=== PATIENT | female | born 1965 | race African-American/Black ===

== ENCOUNTER 2016-10-02 08:16 | Inpatient (IN) ==
[2016-10-02] MEDS ORDERED: ZOFRAN IV ONE (09:22)
[2016-10-02] MEDS ORDERED: MORPHINE IV ONE (09:22)
[2016-10-02 09:23] LABS: MANUAL DIFF NEEDED? NO
[2016-10-02 09:39] LABS: URINE CULTURE NEEDED? NO; URINE MICRO REVIEW NEEDED? NO; URINE SOURCE CLEAN CATCH
[2016-10-02 09:39] LABS: AGAP 17; ALBUMIN 4.3 g/dL (3.5-5.0); ALKALINE PHOSPHATASE 162 U/L (32-104); AMYLASE 86 U/L (20-200); BUN 8 mg/dL (8-22); CALCIUM 9.6 mg/dL (8.8-10.2); CHLORIDE 91 mmol/L (98-107); COSMO 272; GOT 58 U/L (10-30); GPT 19 U/L (10-36); LIPASE 72 U/L (13-60); POTASSIUM 3.5 mmol/L (3.5-5.1); SODIUM 137 mmol/L (136-145); TCO2 29 mmol/L (25-35); TOTAL BILIRUBIN 1.35 mg/dL (0.20-1.00); TOTAL PROTEIN 8.1 g/dL (6.3-8.3)
[2016-10-02 09:40] LABS: BASO% 0.4 % (0.0-0.8); EOS# 0.07 X1000 (0.0-0.7); EOS% 0.9 % (0.0-10.0); HEMATOCRIT 37.2 % (37.0-47.0); HEMOGLOBIN 13.1 g/dL (12.0-16.0); LYMPH# 1.58 X1000 (1.2-3.4); LYMPH% 20.9 % (20.5-51.1); MCHC 35.2 g/dL (33-37); MCV 93.7 FL (81-99); MONO# 0.68 X1000 (0.11-0.59); MPV 10.5 FL (7.4-10.4); NEUT% 68.8 % (42.2-75.2); PLT 230 X1000 (130-400); RBC 3.97 XMIL (4.2-5.4)
[2016-10-02 09:49] LABS: BILIRUBIN URINE SMALL (NEGATIVE); BLOOD URINE MODERATE (NEGATIVE); COLOR ORANGE; GLUCOSE URINE NEGATIVE (NEGATIVE); LEUKOCYTES URINE NEGATIVE (NEGATIVE); NITRITE URINE NEGATIVE (NEGATIVE); PH URINE 7.5; PROTEIN URINE 100 mg/dL (NEGATIVE); SP GRAVITY URINE 1.026; TURBIDITY URINE CLEAR (CLEAR); UROBILINOGEN URINE 4 mg/dL (NORMAL)
[2016-10-02 09:50] LABS: UR EPITHELIAL CELLS <10 /HPF (<10); URINE BACTERIA 1+ /HPF; URINE RBC TNTC /HPF (<10); URINE WBC <10 /HPF (<10)
[2016-10-02] MEDS ORDERED: PRIMAXIN 500 MG in NS 100 ML IV ONE (10:47)
--- NOTE | 2016-10-02 11:12 | Diag Imaging Result Document ---
PROCEDURE NAME: CT ABD/PELVIS W/ IV CONT ONLY - 10/02/2016 CT ABDOMEN AND PELVIS WITH INTRAVENOUS CONTRAST: TECHNIQUE: Dose-reduction protocol. COMPARISON: Compared to 04/24/2015. FINDINGS: There continues to be fatty infiltration of the liver although it is less fatty than on the prior exam. The spleen is not enlarged. Normal adrenal glands and kidneys. No hydronephrosis. Normal gallbladder. Normal aorta. Interval development of multiple hypodense areas within the head of the pancreas and proximal body. The largest measures 18 mm. Minimal inflammation about the pancreatic head. No pancreatic calcifications. No bowel obstruction. No abscess. The urinary bladder is only mildly distended. There is a small amount of free fluid within the pelvis. I believe there is a fibroid within the fundus of the uterus measuring 2.7 cm. IMPRESSION: 1. Interval development of multiple pancreatic pseudocysts versus multilobulated mass. Questionable mild pancreatitis with minimal inflammation about the pancreatic head. 2. Fatty infiltration of the liver. 3. Uterine fibroid. 4. Small amount of free fluid within the pelvis. A preliminary report was given at 10:31 a.m.
--- NOTE | 2016-10-02 11:32 | PROVIDER DOCUMENTATION ---
This chart was entered by Sushant Wagner Scribe, acting as scribe for Leo Cervantes MD. HPI-Abdominal Pain/GI Problem - General Chief Complaint: Abdominal Pain Stated Complaint: ABD PAIN,VOMITING Time Seen by Provider: 10/02/16 08:53 Source: patient Allergies/Adverse Reactions: Patient Allergies Allergy/AdvReac Type Severity Reaction Status Date / Time No Known Allergies Allergy Verified 10/02/16 08:33 Home Medications: Home Medication List Medication Instructions Recorded Confirmed Last Taken Type Metoprolol [Lopressor] 25 mg PO BID #60 tablet 05/01/15 10/02/16 10/02/16 Rx - History of Present Illness-ABD Nature of Presenting Problems: patient is a 51 yo/ F that presents to the ER with 24 hours of generalized abdominal pain and n/v. Patient reports about 7 to 8 episodes of vomiting. Patient denies diarrhea, rectal bleeding, or fever. She has had no recent sick contacts or taken antibiotics. She has had similar problems in the past when she had "pancreas problems". Patient reported drinking 3 shots yesterday. No history of seizures or tremors when doesn't drink Abdominal Pain Onset Location: reports: generalized abdomen Pain Radiation: reports: no radiation Quality of Pain: reports: aching, cramping Severity in ED: reports: moderate Onset/Duration: reports: abrupt, 24 hours ago Timing: reports: still present, constant Activities at Onset: reports: none Modifying Factors: improves with: nothing Associated Symptoms: reports: nausea, vomiting. denies: chest pain, cough, diarrhea, dizziness, EENT symptoms, fever/chills, genitourinary problems, muscle aches, sinus congestion/drainage, shortness of breath, weakness # of Vomiting Episodes: 7 Emesis Description: reports: clear. denies: red blood, coffee grounds Similar Symptoms Previously?: Yes Recently seen or treated by another doctor?: No Review of Systems - Adult - REVIEW OF SYSTEMS - ADULT Constitutional: denies: chills, fever Eyes: reports: no symptoms reported Ears, Nose, Mouth & Throat: reports: no symptoms reported Cardiovascular: denies: chest pain, palpitations, syncope Respiratory: denies: cough, shortness of breath, wheezing Gastrointestinal: reports: abdominal pain, nausea, vomiting. denies: hematemesis, diarrhea, rectal bleeding Genitourinary: denies: dysuria, frequency, hematuria, urgency Musculoskeletal: denies: back pain, joint pain, neck pain Integumentary: reports: no symptoms reported Neurological: reports: no symptoms reported Psychiatric: reports: no symptoms reported Endocrine: reports: no symptoms reported Hematologic/Lymphatic: reports: no symptoms reported Allergic/Immunologic: reports: no symptoms reported All Other Systems: Reviewed and Negative Past History - Adult - PAST MEDICAL HISTORY-ADULT Review of Records: reports: Old Records Reviewed, Nursing Assessment Review, Medications Reviewed Cardiovascular: reports: HTN Gastrointestinal: reports: pancreatitis - PRIOR SURGERIES/PROCEDURES Surgical/Procedure History: reports: none - IMMUNIZATION STATUS Childhood Immunizations: See Nurse Assessment Flu Vaccine: See Nurse Assessment - FAMILY HISTORY Family History: reviewed, not pertinent - SOCIAL HISTORY Smoking: cigarettes, less than 1 pack/day Substance Use: marijuana Alcohol Use Frequency: occasionally Living Situation: family Physical Exam-General - PHYSICAL EXAM-ADULT Initial Vital Signs Reviewed: Yes - CONSTITUTIONAL General Appearance: alert, no apparent distress - EYES Eyes: PERRL/EOMI, pink conjunctivae - HEAD, EARS, NOSE, MOUTH & THROAT HENMT: normocephalic/atraumatic, moist mucous membranes, normal ENT inspection - NECK Neck: full range of motion, normal inspection. negative: lymphadenopathy - RESPIRATORY Respiratory: lungs clear, normal breath sounds, no respiratory distress, no accessory muscle use - CARDIOVASCULAR Cardiovascular: regular rate, rhythm, no gallop, no murmur - GASTROINTESTINAL (ABDOMEN) Abdominal Exam: normal bowel sounds, soft, no organomegaly, no pulsatile mass, tenderness (epigastric and LUQ) - MUSCULOSKELETAL Back Exam: no CVA tenderness, no vertebral tenderness Extremity: normal range of motion, normal inspection - SKIN Integumentary: normal color, warm/dry - NEUROLOGIC Neurologic: grossly normal, no motor/sensory deficits - PSYCHIATRIC Psych/Mental Status: normal mood/affect, normal thought content, normal thought process, oriented x 3 Progress - PLAN OF CARE/RESULTS Progress/Plan/Lab Results: Vital Signs - 8 hr 10/02/16 08:22 Temperature 98.4 F Pulse Rate 98 H Respiratory Rate 14 Blood Pressure 184/96 O2 Sat by Pulse Oximetry 99 Laboratory Results - last 24 hr 10/02/16 10/02/16 10/02/16 08:47 08:47 09:15 WBC 7.57 RBC 3.97 L Hgb 13.1 Hct 37.2 MCV 93.7 MCH 33.0 H MCHC 35.2 RDW Std Deviation 13.6 Plt Count 230 MPV 10.5 H Immature Gran % (Auto) 0.0 Neut % (Auto) 68.8 Lymph % (Auto) 20.9 [place] % (Auto) 9.0 Eos % (Auto) 0.9 Baso % (Auto) 0.4 Immature Gran # (Auto) 0.00 Neut # (Auto) 5.21 Lymph # (Auto) 1.58 [place] # (Auto) 0.68 H Eos # (Auto) 0.07 Baso # (Auto) 0.03 Sodium 137 Potassium 3.5 Chloride 91 L Carbon Dioxide 29 Anion Gap 17 BUN 8 Creatinine 0.7 Estimated GFR/1.73 m2 > 60 BUN/Creatinine Ratio 11 Glucose 95 Calculated Osmolality 272 Calcium 9.6 Total Bilirubin 1.35 H AST 58 H ALT 19 Alkaline Phosphatase 162 H Total Protein 8.1 Albumin 4.3 Globulin 3.8 Albumin/Globulin Ratio 1.1 Amylase 86 Lipase 72 H Urine Source CLEAN CATCH Urine Color ORANGE Urine Turbidity CLEAR Urine pH 7.5 Ur Specific [place] 1.026 Urine Protein 100 A Ur Glucose (Stick) NEGATIVE Ur Ketones (Stick) 100 A Urine Blood MODERATE A Urine Nitrite NEGATIVE Urine Bilirubin SMALL A Urobilinogen Dipstick 4 A Urine Leukocytes NEGATIVE Urine WBC (Auto) <10 Urine RBC (Auto) TNTC A U Epithel Cells (Auto) <10 Urine Bacteria (Auto) 1+ Orders Category Date Time Status Saline Loc DIRECTED Care 10/02/16 09:07 Active NPO Diet 10/02/16 09:[address] ABD/PELVIS W/ IV CONT ONLY [CT] Stat Exams 10/02/16 09:17 Taken AMYLASE [CHEM] Stat Lab 10/02/16 08:47 Completed CBC WITH ELECTRONIC DIFF [HEME] Stat Lab 10/02/16 08:47 Completed COMPREHENSIVE METABOLIC PANEL [CHEM] Stat Lab 10/02/16 08:47 Completed LIPASE [CHEM] Stat Lab 10/02/16 08:47 Completed URINALYSIS W/POSS RFLX CULT [URINALYSIS] Stat Lab 10/02/16 09:15 Completed Morphine Med 10/02/16 09:22 Discontinued 4 mg IV NOW ONE Ondansetron [Zofran] Med 10/02/16 09:22 Discontinued 4 mg IV NOW ONE 1050-hospitalist paged for admission Result Diagrams: 10/02/16 08:47 10/02/16 08:47 - REASSESSMENT Reassessment #1 Status: improving (Patient revisted multiple times while in ED. Made aware of laboratory and CT results and treatment plan. patient in no acute distress.) - CT/MRI 1 CT Study: Abdomen, Pelvis Impression: Abnormal CT Results: pancreatic pseudocyst vs mass, inflammed head of pancreas - CONSULTS/PCP/HOSPITALIST Notification #1 *Consult/PCP/Hospitalist*: Time Discussed: 11:04 Reason/Comments: pancreatitis, pseudo cyst vs mass Consult Disposition: Admit Departure - Departure Time of Disposition Decision: 10:40 DIAGNOSIS: Pancreatitis, Pseudocyst of pancreas, Abdominal pain, ETOH abuse Disposition: ADMITTED INPATIENT 09 Certified Medical Emergency: Emergent Condition: Stable Referrals and Follow-Ups: None,PCP [Primary Care Provider] - This chart was documented by the indicated scribe, (Sushant Wagner, Scribe) and accurately reflects the services I performed and decisions made by me, Leo Cervantes MD, as attested by the provider's signature.
[2016-10-02] MEDS ORDERED: LR 1,000 ML IV ONE ×2 (11:50)
[2016-10-02] MEDS ORDERED: ZOFRAN IV PRN (12:39)
[2016-10-02] MEDS ORDERED: ATIVAN IV PRN (12:39)
[2016-10-02] MEDS ORDERED: TYLENOL PO PRN (12:39)
--- NOTE | 2016-10-02 14:07 | HISTORY AND PHYSICAL ---
PRIMARY CARE PHYSICIAN: None. The patient uses walk-in clinics. CHIEF COMPLAINT: Abdominal pain with nausea and vomiting. HISTORY OF PRESENT ILLNESS: Ms. Fuller is a 51-year-old female who carries a past medical history of hypertension, as well as pancreatitis in the past, alcohol use. The patient states she has good days and bad days, and on the bad days, her drink of choice is vodka. She was not able to elaborate how many days a week or how much she drank. She stated that it depended on how bad of a day she was having. The patient presented to the emergency room with 1 day of nausea, vomiting, and generalized abdominal pain. She did get relief from her abdominal pain after she was given some IV morphine. It was not tender to the touch. She was not having any generalized aches. She did report nausea and vomiting since yesterday. She stated that she was even unable to hold down water, and she stated that she has had this problem in the past with her pancreas and knew what it was, so she came on to the ED. She was started on IV fluids, as well as pain medication and antiemetics. She denies any chest pain, denies any shortness of breath, denies any headache. Denies any dizziness, dysuria, any diarrhea or changes in her stool or any blood in her stool. Her pain was mainly focused in the epigastric area prior to being given morphine. A CT of her abdomen and pelvis revealed interval development of multiple pancreatic pseudocysts versus multilobulated masses, questionable mild pancreatitis with minimal inflammation about the pancreatic head, fatty infiltration of the liver, uterine fibroid, a small amount of free fluid within the pelvis. White count was normal. Total bilirubin was 1.35, AST was 58, ALT 19, alkaline phosphatase was 162. Amylase was 86, and lipase was 72. The patient was admitted for further evaluation and treatment. PAST MEDICAL HISTORY: 1. Hypertension. 2. Pancreatitis in the past. 3. Alcohol abuse. PAST SURGICAL HISTORY: None. SOCIAL HISTORY: The patient did report that vodka is her choice for alcohol. She could not give me any indications of how much vodka she drinks. She just states she has good days and bad days. Yesterday she did have a mixed drink with vodka. Denies any illicit drug use. FAMILY HISTORY: Reviewed and noncontributory. ALLERGIES: No known drug allergies. HOME MEDICATIONS: Metoprolol 25 mg p.o. b.i.d. REVIEW OF SYSTEMS: A 10-point review of systems was completed and negative except for those mentioned in the HPI. The patient did state that her last drink was yesterday. She had 1 mixed drink with vodka. PHYSICAL EXAMINATION: VITAL SIGNS: Temperature is 98.4 degrees, heart rate 98, respirations 14, blood pressure 184/96, and O2 is 99% on room air. GENERAL: Ms. Fuller is a 51-year-old female, who is lying in bed, in no acute distress. HEENT: Atraumatic and normocephalic. PERRLA. NECK: Supple. Trachea midline. CARDIOVASCULAR: No murmurs, gallops, or rubs noted. RESPIRATORY: Lungs sound clear. Equal to excursion, nonlabored breathing. GASTROINTESTINAL: Soft and nontender at this time secondary to having pain medication. Positive bowel sounds in all 4 quadrants. EXTREMITIES: No evidence of clubbing, cyanosis, or edema. Bilateral pedal pulses palpable. NEUROLOGIC: The patient is alert and oriented x4. No neurological deficits noted. LABORATORY AND DIAGNOSTIC DATA: White count 7, hemoglobin 13, hematocrit 37, platelet count of 230,000. Chemistries: Sodium 137, potassium 3.5, BUN 8, creatinine 0.7, blood glucose is 95. Total bilirubin 1.35, AST 58, ALT 19, alkaline phosphatase 162. Amylase 86, lipase 72. Urine is negative for nitrites, negative for leukocytes, less than 10 WBCs, too numerous to count RBCs, and 1+ urine bacteria. We will send off for a culture. ASSESSMENT AND PLAN: 1. Acute pancreatitis. The patient will be admitted to medical telemetry. We will continue with her lactated Ringer's, her bolus as well as an hourly rate; as well as pain management and antiemetics. We will trend her amylase and lipase, with a gastrointestinal consultation. 2. Hypertension. We will do intravenous metoprolol with parameters. 3. Alcohol abuse. We will give as needed Ativan and watch closely for any signs and symptoms of alcohol withdrawal to prevent any delirium tremens. 4. Further recommendations pending physician evaluation, laboratory and diagnostic data, and we will go ahead and check a urine culture. Dictated by FLORENCE Cat for Rafael Greene MD cc: Rafael Greene MD
[2016-10-02] MEDS: LOPRESSOR IV SCH (18:33)
[2016-10-02] MEDS: POTASSIUM CHLORIDE 20 MEQ, MAGNESIUM SULFATE 2 GM, THIAMINE 100 MG, FOLIC ACID 1 MG, M.... IV SCH ×6 (18:43)
[2016-10-02] MEDS: PROTONIX IV SCH (18:45)
[2016-10-02] MEDS: MORPHINE IV PRN (20:47)
[2016-10-03] MEDS: LOPRESSOR IV SCH ×2 (00:20→12:30)
[2016-10-03] MEDS: MORPHINE IV PRN ×2 (06:13→21:00)
[2016-10-03 07:08] LABS: MANUAL DIFF NEEDED? NO
[2016-10-03 07:24] LABS: BASO% 0.4 % (0.0-0.8); EOS# 0.18 X1000 (0.0-0.7); EOS% 3.3 % (0.0-10.0); HEMATOCRIT 38.2 % (37.0-47.0); HEMOGLOBIN 13.2 g/dL (12.0-16.0); LYMPH# 1.57 X1000 (1.2-3.4); LYMPH% 28.5 % (20.5-51.1); MCH 32.4 PG (27-31); MCHC 34.6 g/dL (33-37); MCV 93.6 FL (81-99); MONO# 0.49 X1000 (0.11-0.59); MONO% 8.9 % (1.7-9.3); MPV 10.3 FL (7.4-10.4); NEUT% 58.9 % (42.2-75.2); PLT 207 X1000 (130-400); RBC 4.08 XMIL (4.2-5.4)
[2016-10-03 07:35] LABS: AGAP 14; ALBUMIN 3.9 g/dL (3.5-5.0); ALKALINE PHOSPHATASE 146 U/L (32-104); AMYLASE 90 U/L (20-200); BUN 5 mg/dL (8-22); CALCIUM 9.7 mg/dL (8.8-10.2); CHLORIDE 91 mmol/L (98-107); COSMO 266; GOT 40 U/L (10-30); GPT 15 U/L (10-36); LIPASE 126 U/L (13-60); MAGNESIUM 1.5 mg/dL (1.5-2.7); POTASSIUM 3.7 mmol/L (3.5-5.1); SODIUM 135 mmol/L (136-145); TCO2 30 mmol/L (25-35); TOTAL BILIRUBIN 1.12 mg/dL (0.20-1.00); TOTAL PROTEIN 7.8 g/dL (6.3-8.3)
--- NOTE | 2016-10-03 08:55 | Diag Imaging Result Document ---
PROCEDURE NAME: US GB < RUQ (LIMITED) - 10/03/2016 RIGHT UPPER QUADRANT ULTRASOUND, 10/03/2016: COMPARISON: CT abdomen and pelvis 10/02/2016. FINDINGS: The liver, gallbladder and right kidney are normal. There is ill-defined peripancreatic hyper echogenicity at the pancreatic head compatible with small complicated fluid collections. No evidence of mass. The common bile duct measures 4 mm. Aorta, IVC, and main portal vein are patent. IMPRESSION: Small complicated fluid collections at the pancreatic head. The gallbladder is clear.
--- NOTE | 2016-10-03 14:12 | PROGRESS NOTE ---
DATE: 10/03/2016 SUBJECTIVE: Patient has no focal complaints. OBJECTIVE: Vital signs: Blood pressure 158/85, heart rate of 80, respiratory 18, temperature 98.1 degrees, 98% on room air. Cardiovascular: Regular rate and rhythm. Pulmonary: Bilateral breath sounds. Clear to auscultation. GI: Soft, nontender, nondistended. Bowel sounds are positive. LABORATORY DATA: White count is normal. CMP is normal except total bilirubin up a little bit 1.12, AST of 40, lipase is up to 126. Right upper quadrant showed complicated pseudocyst but no gallbladder disease. PROBLEM LIST: 1. Acute pancreatitis, recurrent. I am suspicious she has got chronic pancreatitis with a pseudocyst or at least fairly recent recurrent pancreatitis. Pseudocysts are too small at this point for drainage. We will just monitor clinically. I am going to advance her diet. She is clinically improved despite her lipase elevation. She may need the initiation of Creon and we will continue to follow. 2. Alcohol abuse. We will continue to monitor. She has not exhibited any signs of withdrawal. Continue p.r.n. medications and follow clinically. DISPOSITION: Pending resolution of her issues. We will continue to monitor. cc: Rafael Greene MD
[2016-10-03] MEDS: POTASSIUM CHLORIDE 20 MEQ, MAGNESIUM SULFATE 2 GM, THIAMINE 100 MG, FOLIC ACID 1 MG, M.... IV SCH ×6 (17:48)
[2016-10-03] MEDS: SODIUM CHLORIDE 0.9% INJ SCH (17:48)
[2016-10-03] MEDS: PROTONIX IV SCH (17:48)
[2016-10-03] MEDS: CENTRUM SILVER PO SCH (22:04)
[2016-10-04 06:48] LABS: HEMATOCRIT 39.6 % (37.0-47.0); HEMOGLOBIN 13.7 g/dL (12.0-16.0); MCH 32.8 PG (27-31); MCHC 34.6 g/dL (33-37); MCV 94.7 FL (81-99); MPV 10.5 FL (7.4-10.4); RBC 4.18 XMIL (4.2-5.4)
[2016-10-04 07:00] LABS: AGAP 14; ALBUMIN 3.8 g/dL (3.5-5.0); ALKALINE PHOSPHATASE 133 U/L (32-104); BUN 5 mg/dL (8-22); CALCIUM 9.4 mg/dL (8.8-10.2); CHLORIDE 93 mmol/L (98-107); COSMO 266; GOT 28 U/L (10-30); GPT 12 U/L (10-36); POTASSIUM 3.5 mmol/L (3.5-5.1); SODIUM 134 mmol/L (136-145); TCO2 27 mmol/L (25-35); TOTAL BILIRUBIN 0.79 mg/dL (0.20-1.00); TOTAL PROTEIN 7.5 g/dL (6.3-8.3)
[2016-10-04 07:08] LABS: LIPASE 411 U/L (13-60)
[2016-10-04] MEDS: CENTRUM SILVER PO SCH ×2 (08:07→20:54)
--- NOTE | 2016-10-04 12:16 | PROGRESS NOTE ---
DATE: 10/04/2016 SUBJECTIVE: The patient is just complaining about wanting to the eat. However she still has abdominal pain and she is still requiring pain medication. OBJECTIVE: Blood pressure 148/94, heart rate 90, respiratory rate 22, temperature 98.4 degrees.Cardiovascular: Regular rate and rhythm. Pulmonary: Bilateral breath sounds. Clear to auscultation. GI: Soft. She is tender to palpation and her lipase has come up somewhat. LABORATORY DATA: Lipase is 411 today. CBC normal. PROBLEM LIST: 1. Acute recurrent pancreatitis. She is very adamant about eating but she is still very tender. I will go ahead and start some full liquids and I am going to add some Creon and then we will follow clinically. I think she is wanting to eat but I am not sure she is really that much clinically improved based on her numbers not so much and I think she probably has chronic pancreatitis at this point, with significant pseudocyst which hopefully will not turn into anything that needs to be drained but we will monitor. GI also following. 2. Alcohol abuse. I have counseled on alcohol cessation. Clinically she seems okay so we are just going to follow. There has not been any evidence of withdrawal at this point. DISPOSITION: Pending her clinical course. cc: Rafael Greene MD
[2016-10-04] MEDS: SODIUM CHLORIDE 0.9% INJ SCH (16:10)
[2016-10-04] MEDS: NS 1,000 ML IV SCH (16:10)
[2016-10-04] MEDS: PROTONIX IV SCH (16:10)
[2016-10-04] MEDS: CREON PO SCH ×2 (16:10→20:54)
[2016-10-04] MEDS: MORPHINE IV PRN (20:54)
[2016-10-04] MEDS ORDERED: DULCOLAX PR SCH (21:00)
[2016-10-05] MEDS: MORPHINE IV PRN ×2 (02:24→09:38)
--- NOTE | 2016-10-05 04:00 | PROGRESS NOTE ---
DATE: 10/04/2016 SUBJECTIVE: The patient is resting in bed. She complains of abdominal pain. She denies any nausea or vomiting, or vomiting blood. She denies any blood in the stools. She had a bowel movement a few days ago. She does have history of some mild constipation in the past. She has history of chronic alcoholism, complicated with chronic alcoholic pancreatitis. She was admitted on 10/02/2016 with abdominal pain, and was noted to have elevated lipase and imaging showed evidence of a pancreatic pseudocyst. The patient is currently being treated with IV fluids, pain control, and IV antiemetics. She is feeling better and wants to go home. PHYSICAL EXAMINATION: Vital Signs: Temperature 98.5 degrees, pulse of 109, respiratory rate 18, blood pressure 144/84, saturating 100% on room air. Body weight of 104 pounds 3.2. BMI of 18.5 kg. General: Moderately built, moderately nourished, lying in bed in no acute distress. HEENT: Mild pallor. No icterus. Pupils equal, react to light. Neck: Supple. Chest: Clear. Heart: Regular rhythm. No murmurs. Tachycardic at times. Abdomen: discomfort in periumbilical region; no rebound or guarding. Bowel sounds are hypoactive. Extremities: No cyanosis , clubbing, or edema. Neurologic: She is alert, awake, oriented. LABORATORY: Hemoglobin and hematocrit are 13.7 and 39.6. White count is 6.7. Platelet count of 206,000. MCV of 94.7. Sodium 135, potassium 3.5, chloride 98, bicarbonate 20, anion gap of 14, BUN of 5, creatinine 0.5, glucose of 109, calcium 9.4. Total bilirubin is 0.79 , AST 28, ALT 12, alkaline phosphatase 133, total protein 7.5, albumin of 3.8, amylase of 90. Lipase on admission was 72, but has gone up to 411. Her CA19-9 is 33, which is normal. Urinalysis showing positive protein, positive blood, positive bilirubin, negative leukocytes, positive RBCs. IMAGING: CT of abdomen and pelvis on 10/02/2016 showed: 1. Interval development of multiple pancreatic pseudocysts versus multilobulated mass, questionable mild pancreatitis with minimal inflammation about the pancreatic head. 2. Fatty infiltration of liver. 3. Spleen is not enlarged. 4. No hydronephrosis and normal gallbladder. 5. The largest pancreatic head cyst is 18 mm. 6. Fibroid within the fundus of the uterus measuring 2.7 cm. 7. Small amount of free fluid in the pelvis. IMPRESSION AND PLAN: 1. Alcoholic pancreatitis, which I believe is likely chronic, now complicated with pancreatic pseudocysts and acute exacerbation. 2. Constipation. 3. Uterine fibroids. 4. Alcoholism. 5. Alcoholic fatty liver disease. RECOMMENDATIONS: 1. We will continue patient on aggressive IV fluids as per the primary care team. Will restart her on normal saline at 150 mL/h for another 24 hours. 2. We agree with continuing on Creon with meals. 3. Will keep her on PPI prophylaxis with Protonix. 4. Will start on bowel regimen with Dulcolax. 5. We will keep her on liquid diet for now and advance as tolerated based on her clinical symptoms. 6. The patient was counseled to quit alcohol completely. 7. Patient will be continued on multivitamin twice daily and patient needs to be watched closely for any kind of alcoholic withdrawal. The patient will need repeat CT scan in the next 6 months to evaluate for resolution of the pancreatic pseudocysts. The above plan was discussed with the patient and Dr. Greene. cc: MD Jacob Black MD [facility]PITALFrank
[2016-10-05] MEDS: NS 1,000 ML IV SCH (06:24)
[2016-10-05 07:04] LABS: HEMATOCRIT 33.7 % (37.0-47.0); HEMOGLOBIN 11.7 g/dL (12.0-16.0); MCH 32.6 PG (27-31); MCHC 34.7 g/dL (33-37); MCV 93.9 FL (81-99); MPV 10.3 FL (7.4-10.4); RBC 3.59 XMIL (4.2-5.4)
[2016-10-05 07:21] LABS: AGAP 12; ALBUMIN 3.2 g/dL (3.5-5.0); ALKALINE PHOSPHATASE 107 U/L (32-104); AMYLASE 89 U/L (20-200); BUN 4 mg/dL (8-22); CALCIUM 8.9 mg/dL (8.8-10.2); CHLORIDE 101 mmol/L (98-107); COSMO 271; GOT 26 U/L (10-30); GPT 11 U/L (10-36); LIPASE 234 U/L (13-60); POTASSIUM 3.6 mmol/L (3.5-5.1); SODIUM 137 mmol/L (136-145); TCO2 24 mmol/L (25-35); TOTAL PROTEIN 6.8 g/dL (6.3-8.3)
[2016-10-05] MEDS: CENTRUM SILVER PO SCH (09:37)
[2016-10-05] MEDS: CREON PO SCH ×2 (09:38→14:53)
[2016-10-05] MEDS: SODIUM CHLORIDE 0.9% INJ SCH (16:48)
[2016-10-05] MEDS: PROTONIX IV SCH (16:48)
[2016-10-05 18:15] VITALS: BP 153/88
--- NOTE | 2016-10-05 21:21 | DISCHARGE SUMMARY ---
ADMISSION DATE: 10/02/2016 DISCHARGE DATE: 10/05/2016 DISCHARGE DIAGNOSES: 1. Acute pancreatitis with recurrence. 2. Alcohol abuse. 3. Multiple pseudocysts. HOSPITAL COURSE: Briefly this is a 51-year-old female with recurrent pancreatitis presenting with abdominal pain, nausea, vomiting. Lipase was only mildly elevated but CT showed pancreatitis with multiple pancreatic pseudocysts. I think the largest was felt to be 1.8 cm. Patient was made NPO, placed on fluids. The following day she clinically improved. Her lipase though had jumped up a little bit. It actually reached a peak of about 411 but clinically she improved. We slowly advanced her diet on the . We advanced it to a low-fat, soft diet. She was tolerating it without difficulty. Pain was stable. I did consult GI who recommended obviously cessation of alcohol and the pseudocyst would need to be followed in 4-6 weeks just to make sure that they did not worsen. They recommended fluids, Creon with meals, and Prilosec. DISCHARGE CONDITION: Stable. DISCHARGE MEDICATIONS: 1. Creon 6000 units t.i.d. with meals. 2. Lopressor 25 b.i.d. 3. Prilosec 40 daily. 4. Lamar 5, 1 p.o. q.4 hours p.r.n. pain. Dispensed 15. 5. Zofran ODT. DISCHARGE INSTRUCTIONS: 1. She was advised to avoid alcohol completely for at least 6 weeks until re-evaluation. 2. Pursue low-fat soft diet. 3. We will attempt to get her some support for her medication as the Creon I anticipate will be fairly expensive. 4. This was a service admission. DISCHARGE TIME: 32 minutes. cc: Rafael Greene MD
== END 2016-10-05 18:50 | disposition home or self-care (01) ==
LOC: ED 08:16 → SUATTDRO 12:03 → 3N 12:03
PROVIDERS: ATTEND Internal Medicine

== ENCOUNTER 2018-11-07 07:38 | Inpatient (IN) ==
--- NOTE | 2018-11-07 09:15 | PROVIDER DOCUMENTATION ---
HPI-Abdominal Pain/GI Problem - General Chief Complaint: Abdominal Pain Stated Complaint: ABD PAIN,RECTAL BLEEDING,BACK PAIN Time Seen by Provider: 11/07/18 08:58 Source: patient Allergies/Adverse Reactions: Patient Allergies Allergy/AdvReac Type Severity Reaction Status Date / Time No Known Allergies Allergy Verified 01/01/18 07:14 Home Medications: Home Medication List Medication Instructions Recorded Confirmed Last Taken Type Multivitamins/Minerals [Centrum 1 each PO DAILY tablet 09/23/17 01/01/18 01/01/18 Rx Silver] Metoprolol [Lopressor] 50 mg PO BID #120 tab 12/11/17 01/01/18 01/01/18 Rx Amlodipine [Norvasc] 5 mg PO DAILY #30 tablet 01/01/18 Unknown Rx Clonidine HCl 0.1 mg PO TID PRN #60 tablet 01/01/18 Unknown Rx - History of Present Illness-ABD Nature of Presenting Problems: Patient is a 53yoF who presents w/ c/o upper abdominal pain radiating to back, nausea, and occasional vomiting for "a while." Reports she has a hx of pancreatitis and that she recently began drinking again 2 months ago after being laid off from her job and being depressed. Patient reports she has been dri nking multiple drinks daily, either beer or Vodka. Reports she has not had a pancreatitis flare-up in almost a year,but reports these symptoms feel similar. Also reports she had a BM this morning with red blood in it. Reports she has experienced this before with pancreatitis. Denies any fever/chills, CP, or SOB. Abdominal Pain Onset Location: reports: RUQ, LUQ Pain Radiation: reports: back Quality of Pain: reports: pressure, throbbing Severity in ED: reports: moderate Onset/Duration: reports: other ("for a while") Timing: reports: getting worse Activities at Onset: reports: none Modifying Factors: worse with: palpation Associated Symptoms: reports: nausea, vomiting. denies: constipation, diarrhea, fever/chills, genitourinary problems, shortness of breath Last BM: this morning Dark Stools Present?: reports: bright red blood Rectal Bleeding: reports: blood mixed with stool Rectal Pain: reports: known hemorrhoids Bruising or Bleeding Gums?: No Similar Symptoms Previously?: Yes (hx pancreatitis) Recently seen or treated by another doctor?: No Review of Systems - Adult - REVIEW OF SYSTEMS - ADULT Constitutional: denies: chills, fever Eyes: reports: no symptoms reported Ears, Nose, Mouth & Throat: reports: no symptoms reported Cardiovascular: denies: chest pain, palpitations Respiratory: denies: cough, shortness of breath Gastrointestinal: reports: see HPI, abdominal pain, nausea, rectal bleeding, vomiting. denies: diarrhea Genitourinary: reports: no symptoms reported Musculoskeletal: reports: see HPI, back pain Integumentary: reports: no symptoms reported Neurological: reports: no symptoms reported Psychiatric: reports: no symptoms reported Endocrine: reports: no symptoms reported All Other Systems: Reviewed and Negative Past History - Adult - PAST MEDICAL HISTORY-ADULT Review of Records: reports: Old Records Reviewed, Nursing Assessment Review, Medications Reviewed Major Childhood Illnesses: reports: denies history Cardiovascular: reports: HTN Respiratory: reports: denies history Gastrointestinal: reports: pancreatitis Obstetrical/Gynecological: reports: denies history Genitourinary: reports: denies history Musculoskeletal: reports: arthritis Neurological: reports: denies history Psychiatric: reports: denies history Endocrine/Immune: reports: denies history Other Conditions: reports: denies history - PRIOR SURGERIES/PROCEDURES Surgical/Procedure History: reports: none - IMMUNIZATION STATUS Childhood Immunizations: See Nurse Assessment Flu Vaccine: See Nurse Assessment - FAMILY HISTORY Family History: reviewed, not pertinent - SOCIAL HISTORY Smoking: cigarettes Provider spent 3-5 mins advising pt. on dangers of tobacco.: Discussed manners to quit use, and f/u contacts for add'l counseling. Alcohol Use Frequency: every day Number of drinks per typical drinking period:: 3-4 drinks ("depends on the day") Physical Exam-General - PHYSICAL EXAM-ADULT Initial Vital Signs Reviewed: Yes - CONSTITUTIONAL General Appearance: alert, mild distress - EYES Eyes: PERRL/EOMI - HEAD, EARS, NOSE, MOUTH & THROAT HENMT: normocephalic/atraumatic, moist mucous membranes - NECK Neck: full range of motion, supple, normal inspection - RESPIRATORY Respiratory: chest non-tender, lungs clear, normal breath sounds, no pleuratic chest pain, no respiratory distress, no accessory muscle use - CARDIOVASCULAR Cardiovascular: no gallop, no murmur, tachycardia (109) - GASTROINTESTINAL (ABDOMEN) Abdominal Exam: normal bowel sounds, soft, tenderness (TTP RUQ & LUQ). negative: distended, guarding, rigid, rebound - GENITOURINARY Female Genitalia/Pelvic Exam: deferred Rectal Exam: normal rectal tone, hemorrhoids (external). negative: tenderness Hemoccult Exam: heme positive stool - MUSCULOSKELETAL Back Exam: normal inspection Extremity: normal range of motion, non-tender, normal gait, normal inspection - SKIN Integumentary: normal color, warm/dry - NEUROLOGIC Neurologic: grossly normal - PSYCHIATRIC Psych/Mental Status: normal mood/affect, normal thought content, normal thought process, oriented x 3 Progress - PLAN OF CARE/RESULTS Progress/Plan/Lab Results: Vital Signs - 8 hr 11/07/18 07:39 Temperature 97.8 F Pulse Rate 109 H Respiratory Rate 18 Blood Pressure 162/108 O2 Sat by Pulse Oximetry 99 Orders Category Date Time Status Saline Loc NOW Care 11/07/18 08:58 Active AMYLASE [CHEM] Stat Lab 11/07/18 08:58 Uncollected CBC WITH ELECTRONIC DIFF [HEME] Stat Lab 11/07/18 08:58 Uncollected COMPREHENSIVE METABOLIC PANEL [CHEM] Stat Lab 11/07/18 08:58 Uncollected LIPASE [CHEM] Stat Lab 11/07/18 08:58 Uncollected OCCULT BLOOD SCREENING [STOOL] Stat Lab 11/07/18 08:58 Uncollected URINALYSIS W/POSS RFLX CULT [URINALYSIS] Stat Lab 11/07/18 08:58 Uncollected Result Diagrams: 11/07/18 09:15 11/07/18 09:15 - CT/MRI 1 CT Study: Abdomen, Pelvis Impression: See EMR Report ([facility] [address], [address], [place] [address] Department of Imaging Patient: BRENDA PORTILLO FAYEADM Date: 11/07/18MR#: [id number] : 1965ADM [id number] Age/Sex: 53/FRoom/Bed: Loc: ED Ordering Physician: Cierra Mcghee Family Physician: None,PCP Reason for Procedure: abd pain hx of pancreatitis __ _ Signed EXAM: CT ABD/PELVIS W/IV CONT ONLY HISTORY: abd pain hx of pancreatitis TECHNIQUE: CT abdomen and pelvis with intravenous contrast COMPARISON: 09/17/2017 FINDINGS: No calcified gallstones or adjacent inflammation. Mild fatty infiltration of the liver. Normal spleen. There are multiple scattered pancreatic calcifications. Mildly prominent pancreatic duct. Tiny cyst in the pancreatic head. Normal adrenal glands and kidneys. Normal aorta. No bowel obstruction. No dilated small bowel loops on the current exam. No abscess. There is a small amount of free fluid in the lower abdomen and pel vis. Normal uterus. The urinary bladder is mildly distended and appears normal. IMPRESSION: 1.Chronic pancreatitis 2.Fatty infiltration of the liver This exam was performed using automated exposure control, adjustment of mA or kV according to patient size, and/or use of iterative reconstruction technique. Electronically signed by Rafael Weaver 11/07/2018 11:26 AM 11/07/18 1126 Interpreting Physician: Rafael Weaver MD Dictated Date/Time: 11/07/18 1119 cc: Cierra Mcghee; None,PCP) - CONSULTS/PCP/HOSPITALIST Notification #1 *Consult/PCP/Hospitalist*: Jazmin Phillips Time Discussed: 11:45 Reason/Comments: Pancreatitis; rectal bleeding; elevated lipase Consult Disposition: Admit Departure - Departure Date of Disposition Decision: 11/07/18 Time of Disposition Decision: 11:45 DIAGNOSIS: ETOH abuse, Elevated lipase Pancreatitis Qualifiers: Chronicity: chronic Pancreatitis type: alcohol induced Qualified Code(s): K86.0 - Alcohol-induced chronic pancreatitis Abdominal pain Qualifiers: Abdominal location: upper abdomen, unspecified Qualified Code(s): R10.10 - Upper abdominal pain, unspecified GI bleed Qualifiers: GI bleed type/associated pathology: unspecified gastrointestinal hemorrhage ty pe Qualified Code(s): K92.2 - Gastrointestinal hemorrhage, unspecified UTI (urinary tract infection) Qualifiers: Urinary tract infection type: site unspecified Hematuria presence: with hematuria Qualified Code(s): N39.0 - Urinary tract infection, site not specified Disposition: ADMITTED INPATIENT 09 Certified Medical Emergency: Emergent Condition: Stable Referrals and Follow-Ups: None,PCP [Primary Care Provider] - - Critical Care Note This patient required my direct & personal management of CC.: No Attestation - Physician/ BALJINDER Attestation Patient care was provided by Advanced Practice Provider:: Yes Advanced Practice Provider:: Cierra Mcghee Advanced Practice Provider documentation review:: The Mid-level provider documentation, treatment plan and medical decision making was reviewed by the physician who agrees with all treatment and medical decision making by the MLP. The physician spent face to face time with patient:: No Advanced Practice Provider documentation review:: Supervising physician onsite and consulted in the evaluation and care of this patient. The physician did not have a face to face encounter with the patient.
[2018-11-07 09:34] LABS: BASO# 0.01 X1000 (0.0-0.2); BASO% 0.2 % (0.0-0.8); EOS# 0.07 X1000 (0.0-0.7); EOS% 1.2 % (0.0-10.0); HEMATOCRIT 46.6 % (37.0-47.0); HEMOGLOBIN 16.1 g/dL (12.0-16.0); LYMPH% 21.9 % (20.5-51.1); MCH 31.8 PG (27-31); MCHC 34.5 g/dL (33-37); MCV 91.9 FL (81-99); MONO# 0.47 X1000 (0.11-0.59); MONO% 7.9 % (1.7-9.3); MPV 10.5 FL (7.4-10.4); NEUT# 4.08 X1000 (1.4-6.5); NEUT% 68.8 % (42.2-75.2); PLT 245 X1000 (130-400); RBC 5.07 XMIL (4.2-5.4); RDW 16.8 % (11.5-14.5); WBC 5.93 X1000 (4.8-10.8)
[2018-11-07 09:37] LABS: URINE SOURCE CLEAN CATCH
[2018-11-07 09:43] LABS: BILIRUBIN URINE SMALL (NEGATIVE); BLOOD URINE SMALL (NEGATIVE); COLOR YELLOW; GLUCOSE URINE NEGATIVE (NEGATIVE); KETONE URINE 40 mg/dL (NEGATIVE); LEUKOCYTES URINE LARGE (NEGATIVE); NITRITE URINE NEGATIVE (NEGATIVE); PROTEIN URINE 100 mg/dL (NEGATIVE); TURBIDITY URINE HAZY (CLEAR); UROBILINOGEN URINE 3 mg/dL (NORMAL)
[2018-11-07] MEDS ORDERED: TORADOL IV ONE (09:51)
[2018-11-07 10:03] LABS: AGAP 16; ALB/GLOB RATIO 1.3; ALBUMIN 5.3 g/dL (3.5-5.0); ALKALINE PHOSPHATASE 165 U/L (32-104); AMYLASE 151 U/L (20-200); BUN 10 mg/dL (8-22); CALCIUM 10.9 mg/dL (8.8-10.2); CHLORIDE 92 mmol/L (98-107); COSMO 277; CREATININE 0.7 mg/dL (0.5-0.9); ESTIMATED GFR > 60; GLUCOSE 108 mg/dL (70-104); GOT 35 U/L (10-30); GPT 14 U/L (10-36); LIPASE 406 U/L (13-60); POTASSIUM 3.9 mmol/L (3.5-5.1); SODIUM 139 mmol/L (136-145); TCO2 31 mmol/L (25-35); TOTAL PROTEIN 9.5 g/dL (6.3-8.3)
[2018-11-07] MEDS ORDERED: M.V.I.-12 10 ML, FOLIC ACID 1 MG, MAGNESIUM SULFATE 1 GM, THIAMINE 100 MG in NS 1,000 ML IV ONE (10:32)
[2018-11-07 10:53] LABS: INR 0.83; PROTIME 12.1 Seconds (11.0-16.0); PTT 29.6 Seconds (22.3-41.8)
[2018-11-07 11:16] LABS: URINE CASTS GRANULAR PRESENT; URINE WBC TNTC /HPF (<10)
--- NOTE | 2018-11-07 11:28 | Diag Imaging Result Doc PS360 ---
EXAM: CT ABD/PELVIS W/IV CONT ONLY HISTORY: abd pain hx of pancreatitis TECHNIQUE: CT abdomen and pelvis with intravenous contrast COMPARISON: 09/17/2017 FINDINGS: No calcified gallstones or adjacent inflammation. Mild fatty infiltration of the liver. Normal spleen. There are multiple scattered pancreatic calcifications. Mildly prominent pancreatic duct. Tiny cyst in the pancreatic head. Normal adrenal glands and kidneys. Normal aorta. No bowel obstruction. No dilated small bowel loops on the current exam. No abscess. There is a small amount of free fluid in the lower abdomen and pelvis. Normal uterus. The urinary bladder is mildly distended and appears normal. IMPRESSION: 1.Chronic pancreatitis 2.Fatty infiltration of the liver This exam was performed using automated exposure control, adjustment of mA or kV according to patient size, and/or use of iterative reconstruction technique. Electronically signed by Rafael Weaver 11/07/2018 11:26 AM
[2018-11-07] MEDS ORDERED: ROCEPHIN 1 GM in NS 50 ML IV ONE (11:34)
[2018-11-07] MEDS ORDERED: ZOFRAN IV PRN (12:54)
[2018-11-07] MEDS ORDERED: NS 1,000 ML IV ONE (12:55)
[2018-11-07] MEDS: LIBRIUM PO SCH ×2 (13:32→18:49)
[2018-11-07] MEDS: NS 1,000 ML IV SCH (13:35)
[2018-11-07 13:42] LABS: UR AMPHETAMINES QUAL NONE DETECTED (NONE DETECT); UR BARBITUATES QUAL NONE DETECTED (NONE DETECT); UR BENZODIAZEPIN QUAL NONE DETECTED (NONE DETECT); UR CANNABINOIDS QUAL PRESUMPTIVE POSITIVE (NONE DETECT); UR COCAINE QUAL NONE DETECTED (NONE DETECT); UR METHADONE QUAL NONE DETECTED (NONE DETECT); UR OPIATES QUAL NONE DETECTED (NONE DETECT); UR OXYCODONE QUAL NONE DETECTED (NONE DETECT); UR PCP QUAL NONE DETECTED (NONE DETECT)
[2018-11-07] MEDS ORDERED: LOVENOX SUBQ SCH (14:00)
[2018-11-07 14:11] LABS: UR EPITHELIAL CELLS <10 /HPF (<10); URINE BACTERIA NEGATIVE /HPF; URINE RBC <10 /HPF (<10)
[2018-11-07] MEDS ORDERED: LABETALOL IV PRN (14:17)
--- NOTE | 2018-11-07 14:46 | HISTORY AND PHYSICAL ---
PRIMARY CARE PHYSICIAN: None. CHIEF COMPLAINT: Abdominal pain. HISTORY OF PRESENT ILLNESS: Mrs. Fuller is a 53-year-old -[place] female with a history of chronic pancreatitis, hypertension, nicotine dependence, alcohol dependence, who presents to the ER with abdominal pain since Sunday. She has a history of alcoholic pancreatitis and was admitted around a year ago for acute exacerbation of her alcoholic pancreatitis. She had a long period of sobriety but around 2 months ago she was laid off from her job and began to drink again. She reports drinking 3-4 shots of liquor a day coupled with 2-3 beers. She also smokes marijuana and smokes cigarettes. On Sunday, she starting having diffuse abdominal pain with nausea and vomiting. The pain has been progressively worse, not associated with any fevers, chest pain, or shortness of breath, but she did report some melena but denies any hematemesis or hematochezia. When she got to the ER today, she had labs done, which showed mild elevation in her transaminases with a lipase of 406. Her CT pelvis and abdomen did show chronic pancreatitis and fatty infiltration of the liver but nothing acute. She was also noted to have positive guaiac stool test. She is hemodynamically stable and will be admitted for further treatment and evaluation. PAST MEDICAL HISTORY: 1. Chronic pancreatitis secondary to alcohol dependence. 2. Hypertension, question of medical compliance. 3. Marijuana dependence. 4. Nicotine dependence. 5. Alcohol dependence. PAST SURGICAL HISTORY: None. SOCIAL HISTORY: She smokes a half a pack a day, drinks 3-4 shots of liquor coupled with 2-3 beers a day, smokes marijuana on occasion. She is currently unemployed. FAMILY HISTORY: Significant for lung cancer, hypertension, diabetes mellitus. REVIEW OF SYSTEMS: Denies any fever, chills. No chest pain or shortness of breath. No hematemesis. She does report diffuse abdominal pain crampy in nature radiating to her back. She denies any dysuria. Denies diarrhea. Does report melena. Denies lower extremity edema, swelling, calf tenderness. ALLERGIES: No known drug allergies. HOME MEDICATIONS: She takes a blood pressure pill she cannot recall the name of. PHYSICAL EXAMINATION: VITAL SIGNS: Blood pressure is 192/105, heart rate is 85, respiratory rate 13, O2 saturation is 99% on room air, temperature is 97.8. GENERAL: This is a thin somewhat frail-appearing 53-year-old -[place] female lying in the hospital bed in no acute distress. NEUROLOGICAL: Awake, alert, and oriented. Follows commands. No focal deficits. HEENT: Head is atraumatic, normocephalic. Pupils are equal, round, and reactive to light. Oral mucosa is dry. NECK: Trachea is midline. No JVD. CHEST: Clear to auscultation. CARDIOVASCULAR: Tachycardic but regular. S1, S2 is noted. No appreciable murmurs. GASTROINTESTINAL: Diffusely tender mainly in the left upper quadrant. Abdomen is nondistended. Bowel sounds are hypoactive. EXTREMITIES: No edema, clubbing, or cyanosis. Pulses are 2+ bilaterally. DIAGNOSTIC DATA: Abdomen and pelvis CT shows fatty liver and chronic pancreatitis, nothing acute. WBC 5.93, hemoglobin 16.1, hematocrit 46.6, platelet count 245. INR 0.83. Sodium 139, potassium 3.9, chloride 92, CO2 31, anion gap 16, BUN 10, creatinine 0.7, glucose is 108, calcium 10.9, magnesium 1.4, bilirubin 0.6, AST 35, ALT 14, alkaline phosphatase 165. CRP 17.58. Total protein 9.5, albumin 5.3. Triglycerides 107, cholesterol 317, LDL 204, HDL is 111. Lipase is 406. UA does show a question of infection but she is asymptomatic. ASSESSMENT AND PLAN: 1. [id number] alcoholic pancreatitis: Will continue with bowel rest. Lipid panel has been checked and found to not be contributing to her pancreatitis. Abdomen and pelvis CT does not show any acute abnormalities. Will continue bowel rest, IV fluids, antiemetics, and pain control. 2. Hypertension. Will restart home medications once reconciled, add IV if necessary. 3. Alcohol dependence. We have advised the patient to quit drinking. We prescribed a Librium taper and will treat with IV Ativan if necessary for any breakthrough withdrawals. 4. Melena. Hemoglobin and hematocrit stable. Will recheck another hemoglobin and hematocrit later today. She may need inpatient consultation with GI. 5. Deep venous thrombosis prophylaxis with sequential compression devices given question of gastrointestinal bleed. 6. Further recommendations to follow. Patient seen and examined by me face to face, all the laboratory, images and vital signs were reviewed, patient presented to the emergency department complaining of abdominal pain, located in the epigastric and periumbilical area for 3 - 4 days, she has a history of alcohol abuse, apparently she stopped drinking for a few months but after loosing her job she started to drink again, laboratory showed pancreatitis, she will be placed NPO, she will need Librium probably, and as needed medications for withdrawal symptoms, she will receive fluids and pain management, she has been advised against alcohol use on a daily basis, I agree with the CULTURE ROOM WORKER' assessment and plan, Mark Lloyd MD. Dictated by FLORENCE Mcclure for Mark Erwin MD cc: FLORENCE Mcclure MD MTDD
[2018-11-07] MEDS: SODIUM CHLORIDE 0.9% INJ SCH (16:08)
[2018-11-07] MEDS: PEPCID IV SCH (16:08)
[2018-11-07] MEDS: NICODERM PATCH TD SCH (16:08)
[2018-11-07] MEDS: MORPHINE IV PRN ×2 (16:13→22:11)
[2018-11-07 17:24] LABS: HEMATOCRIT 41.3 % (37.0-47.0); HEMOGLOBIN 14.3 g/dL (12.0-16.0)
[2018-11-07 23:27] LABS: HEMATOCRIT 36.8 % (37.0-47.0); HEMOGLOBIN 12.9 g/dL (12.0-16.0)
[2018-11-08] MEDS: NS 1,000 ML IV SCH ×2 (01:40→01:59)
[2018-11-08] MEDS: PEPCID IV SCH ×2 (01:40→15:37)
[2018-11-08] MEDS: LIBRIUM PO SCH ×4 (01:40→21:01)
[2018-11-08] MEDS: MORPHINE IV PRN ×4 (07:15→21:06)
[2018-11-08 07:36] LABS: BASO% 0.3 % (0.0-0.8); EOS% 2.2 % (0.0-10.0); HEMATOCRIT 37.8 % (37.0-47.0); HEMOGLOBIN 13.1 g/dL (12.0-16.0); LYMPH% 24.7 % (20.5-51.1); MCH 32.2 PG (27-31); MCHC 34.7 g/dL (33-37); MCV 92.9 FL (81-99); MONO% 9.9 % (1.7-9.3); MPV 10.3 FL (7.4-10.4); NEUT% 62.9 % (42.2-75.2); PLT 179 X1000 (130-400); RBC 4.07 XMIL (4.2-5.4); WBC 6.67 X1000 (4.8-10.8)
[2018-11-08 07:37] LABS: BASO# 0.02 X1000 (0.0-0.2); EOS# 0.15 X1000 (0.0-0.7); LYMPH# 1.65 X1000 (1.2-3.4); MONO# 0.66 X1000 (0.11-0.59); NEUT# 4.19 X1000 (1.4-6.5)
[2018-11-08 08:30] LABS: AGAP 16; ALB/GLOB RATIO 1.1; ALBUMIN 3.8 g/dL (3.5-5.0); ALKALINE PHOSPHATASE 116 U/L (32-104); BUN 5 mg/dL (8-22); CALCIUM 8.9 mg/dL (8.8-10.2); CHLORIDE 94 mmol/L (98-107); COSMO 268; CREATININE 0.5 mg/dL (0.5-0.9); ESTIMATED GFR > 60; GLUCOSE 68 mg/dL (70-104); GOT 21 U/L (10-30); GPT 8 U/L (10-36); MAGNESIUM 1.2 mg/dL (1.5-2.7); POTASSIUM 2.8 mmol/L (3.5-5.1); SODIUM 136 mmol/L (136-145); TCO2 26 mmol/L (25-35); TOTAL BILIRUBIN 0.47 mg/dL (0.20-1.00); TOTAL PROTEIN 7.2 g/dL (6.3-8.3)
[2018-11-08] MEDS ORDERED: NS IV SCH ×2 (09:00→13:27)
[2018-11-08] MEDS ORDERED: M.V.I.-12 10 ML, FOLIC ACID 1 MG, MAGNESIUM SULFATE 1 GM, THIAMINE 100 MG in NS 1,000 ML IV SCH (09:00)
[2018-11-08] MEDS ORDERED: POTASSIUM PHOSPHATE IV SCH ×2 (09:00→13:27)
[2018-11-08] MEDS ORDERED: MAGNESIUM SULFATE 2 GM/S.W.I. 2 GM/50 ML IVPB IV ONE (09:01)
[2018-11-08] MEDS: NICODERM PATCH TD SCH (09:20)
--- NOTE | 2018-11-08 15:10 | PROGRESS NOTE ---
DATE: 11/08/2018 SUBJECTIVE: As per the patient, she is feeling better but she is still asking for pain medication. She is really hungry today so I will start this lady on a liquid diet to see how she does. Also, I will decrease the IV fluids from 150 to 100. Continue with Librium and the rest of the medications. OBJECTIVE: Vital Signs: Temperature 97.9 degrees, pulse 78, respiratory rate 16, blood pressure 144/78, and oxygen saturation 100% on room air. HEENT: Head normocephalic. No trauma. PERRLA. Neck: Supple. No JVD. No masses. Central trachea. Chest: Clear to auscultation. No wheezing. No rales. Abdomen: Soft, nontender, and nondistended. No hepatosplenomegaly. Extremities: No edema. No clubbing. No cyanosis. Neurological: The patient is alert. She is oriented. No focal neurological deficits, a little bit sleepy. LABORATORY: WBC 6.6, hemoglobin 13.1, hematocrit 37.8, and platelets 179,000. Sodium 136, potassium 2.8, chloride 92, bicarbonate 26, BUN 5, creatinine 0.5 glucose 68, calcium 8.9, and magnesium 1.2. ASSESSMENT AND PLAN: 1. Acute on chronic alcoholic pancreatitis. I will start this patient on a clear liquid diet today. I will continue with IV fluids and pain medication. 2. Hypertension. Continue with same management. 3. Alcohol dependence. This patient has been highly advised against alcohol abuse. I will continue with daily cessation education. I will continue with Librium taper and Ativan as needed for any break through withdrawal. 4. Possible melena. Her hemoglobin actually is good. Upon admission, it was 16, but she was dehydrated. After hydration, this patient's hemoglobin has been stable. Today it is 13.1 and yesterday was 12.9, so I just will monitor for now. 5. Hypokalemia. We will replace the potassium. 6. Hypomagnesemia. I will replace the magnesium. 7. Deep vein thrombosis prophylaxis with sequential compression devices. cc: Mark Erwin MD
[2018-11-08] MEDS: SODIUM CHLORIDE 0.9% INJ SCH (15:37)
[2018-11-09] MEDS: PEPCID IV SCH (02:18)
[2018-11-09] MEDS: MORPHINE IV PRN (02:22)
[2018-11-09] MEDS: LIBRIUM PO SCH (05:24)
[2018-11-09 08:07] VITALS: BP 133/85
[2018-11-09 08:40] LABS: AGAP 13; ALB/GLOB RATIO 0.9; ALBUMIN 3.5 g/dL (3.5-5.0); ALKALINE PHOSPHATASE 113 U/L (32-104); BUN 4 mg/dL (8-22); CALCIUM 9.4 mg/dL (8.8-10.2); CHLORIDE 102 mmol/L (98-107); COSMO 278; CREATININE 0.6 mg/dL (0.5-0.9); ESTIMATED GFR > 60; GLUCOSE 93 mg/dL (70-104); GOT 19 U/L (10-30); GPT 7 U/L (10-36); MAGNESIUM 1.6 mg/dL (1.5-2.7); POTASSIUM 3.4 mmol/L (3.5-5.1); SODIUM 141 mmol/L (136-145); TCO2 26 mmol/L (25-35); TOTAL BILIRUBIN 0.26 mg/dL (0.20-1.00); TOTAL PROTEIN 7.3 g/dL (6.3-8.3)
--- NOTE | 2018-11-10 09:09 | DISCHARGE SUMMARY ---
ADMISSION DATE: 11/07/2018 DISCHARGE DATE: 11/09/2018 DISCHARGE DIAGNOSES: 1. Acute on chronic alcoholic hepatitis. 2. Hypertension. 3. Alcohol dependence. 4. Possible melena. 5. Hypokalemia. 6. Hypomagnesemia. HOSPITAL COURSE: A 53-year-old female with a history of chronic pancreatitis, hypertension, nicotine dependence, alcohol dependence, presented to the emergency department with abdominal pain for 3 or 4 days, she was admitted on 11/07/2018. She has a history of alcoholic pancreatitis and she was admitted around 1 year ago for acute exacerbation of her alcoholic pancreatitis, she had a period of sobriety but around 2 months ago, she lost her job and began to drink again, it looks also like she smokes marijuana and she smokes cigarettes. She started having diffuse abdominal pain, nausea and vomiting that has been progressively getting worse. The diagnosis of pancreatitis was made and she was placed on IV fluids, n.p.o. and pain medication. We also started treating this patient with Librium for her alcohol abuse to avoid withdrawal symptoms, also medications as needed, she was progressing fairly well. Yesterday, we started this patient on a liquid diet, because yesterday she was feeling much better and she was feeling really hungry, so today when I went to the room, the patient was not there, she pulled out her IV line and she left the hospital without notifying the practitioner or the nurses. cc: Mark Erwin MD
== END 2018-11-09 09:59 | disposition left against medical advice (07) | DRG 439 ==
LOC: ED 07:38 → EDIPHOLD 13:45 → 3N 15:10
PROVIDERS: ATTEND Internal Medicine
CPT/HCPCS: 74177; 80053; 80061; 80101; 80301; 80307; 80324; 80345; 80346; 80353; 80358; 80361; 80365; 81001; 82150; 82270; 83690; 83721; 83735; 83992; 84100; 85014; 85018; 85025; 85610; 85730; 86140; 87088; 96365; 96366; 96368; 96375; 99285; A9270; G0431; G0434; G0479; G0480; J0696; J1885; J2270; J3411; J3475; J7030; Q9967; S0028